=== PATIENT | male | born 1950 | race Caucasian/White ===

== ENCOUNTER 2017-10-03 09:50 | Emergency (ER) | payer MEDICARE, BC ==
--- NOTE | 2017-10-03 10:25 | ED ---
Skin Complaint - HPI Summary HPI Summary: 58-year-old male with no past medical history presents with itchy rash located on the anterior surfaces of the lower legs bilaterally starting approximate 4 days prior, gradually worsening, with a centripetal pattern, patient initially thought it was bedbugs but has progressed bilaterally. Also complains of generalized myalgias, subjective fever, and fatigue. Patient says rash is intermittently itchy. Denies any hematuria. No recent international travel. Located mainly on lower extremities, to a lesser degree in the forearms and back. Sparing of the face and torso. - History of Current Complaint Chief Complaint: EDRashSkinAbscess Stated Complaint: RASH Pain Intensity: 4 - Allergy/Home Medications Allergies/Adverse Reactions: Allergies Allergy/AdvReac Type Severity Reaction Status Date / Time No Known Allergies Allergy Verified 10/03/17 09:52 PMH/Surg Hx/FS Hx/Imm Hx Endocrine/Hematology History: Denies: Hx Diabetes, Hx Thyroid Disease Cardiovascular History: Denies: Hx Hypertension Respiratory History: Denies: Hx Asthma, Hx Chronic Obstructive Pulmonary Disease (COPD) GI History: Denies: Hx Ulcer History: Reports: Hx Kidney Stones - Cancer History Cancer Type, Location and Year: skin cancer and prostate cancer - Surgical History Surgery Procedure, Year, and Place: Radical prostatectomy Infectious Disease History: No Infectious Disease History: Denies: Hx Clostridium Difficile, Hx Hepatitis, Hx Human Immunodeficiency Virus (HIV), Hx of Known/Suspected MRSA, Hx Shingles, Hx Tuberculosis, Hx Known/ Suspected VRE, Hx Known/Suspected VRSA, History Other Infectious Disease, Traveled Outside the [place] in Last 30 Days - Family History Known Family History: Positive: None - Social History Alcohol Use: Occasionally Substance Use Type: Reports: None Smoking Status (MU): Light Every Day Tobacco Smoker Type: Cigarettes Have You Smoked in the Last Year: Yes Review of Systems Positive: Chills, Fatigue ENT: Negative Cardiovascular: Negative Respiratory: Negative Gastrointestinal: Negative Genitourinary: Negative Positive: Arthralgia Positive: Rash Neurological: Negative Psychological: Normal All Other Systems Reviewed And Are Negative: Yes Physical Exam Triage Information Reviewed: Yes Vital Signs On Initial Exam: Initial Vitals Temp Pulse Resp BP Pulse Ox 37.1 C 95 16 143/95 96 10/03/17 09:55 10/03/17 09:55 10/03/17 09:55 10/03/17 09:55 10/03/17 09:55 Vital Signs Reviewed: Yes Skin: Positive: Warm, Other - Erythematous papular rash in a follicular pattern with appearance of petechiae in certain areas, located in the lower extremities anteriorly in the lower leg and top of the foot, some areas exhibit blanching. Mild pink papules slightly raised on the posterior forearms bilaterally Eyes: Positive: Normal, EOMI, MERLE ENT: Positive: Normal ENT inspection Neck: Positive: Supple Respiratory/Lung Sounds: Positive: Clear to Auscultation, Breath Sounds Present Cardiovascular: Positive: Normal, RRR Abdomen Description: Positive: Nontender, No Organomegaly Bowel Sounds: Positive: Present Musculoskeletal: Positive: Other - Mild tenderness to bilateral calves Neurological: Positive: Normal, CN Intact II-III Psychiatric: Positive: Normal Diagnostics - Vital Signs Vital Signs Temp Pulse Resp BP Pulse Ox 10/03/17 09:55 37.1 C 95 16 143/95 96 - Laboratory Result Diagrams: 10/03/17 10:32 10/03/17 10:33 Lab Statement: Any lab studies that have been ordered have been reviewed, and results considered in the medical decision making process. Course/Dx - Course Assessment/Plan: Patient in no acute distress here in the emergency department. Labs show mild osteopenia without evidence of renal failure or anemia. injury distress. I instructed Mr. Burden to follow-up with a front desk agent and a wood borer, given my suspicion for early vasculitis with the appearance of the rash and other constitutional symptoms. Also prescribed initial course of Medrol Dosepak and doxycycline for possibility of tick borne illness given isolated thrombocytopenia and fever. Also instructed Mr. Burden to return to the emergency Department if he notices worsening of the rash accompanied by any other constitutional symptoms including additional fever, myalgias, nausea, vomiting, or abdominal pain. Mr. Burden is thankful for his care and agrees and understands discharge instructions. - Diagnoses Provider Diagnoses: Vasculitis, Rash and nonspecific skin eruption Discharge - Sign-Out/Discharge Documenting (check all that apply): Discharge/Admit/Transfer - Discharge Plan Condition: Stable Disposition: HOME Prescriptions: DOXYcycline CAP(*) [DOXYcycline 100MG CAP(*)] 100 mg PO BID #14 cap methylPREDNISolone [Medrol Dosepak 4 MG*] 4 mg PO .SEE TEENA INSTRUCTION #4 tab Patient Education Materials: [place] (ED), [place] Spotted Fever (ED) Referrals: Flavio Contreras MD [Primary Care Provider] - Andrey Woods MD [Medical Doctor] - Gardenia Woody [Medical Doctor] - Andrey Belcher JR, MD [Medical Doctor] - Radha Wheat MD [Medical Doctor] - Additional Instructions: PLEASE MAKE AN APPOINTMENT FIRST THING IN THE MORNING TO BE SEEN BY A ORACLE R12 DEVELOPER AND CONTINUOUS MINING MACHINE COAL MINER WITHIN 1 WEEK PLEASE RETURN TO THE EMERGENCY ROOM IF YOU HAVE ANY WORSENING OR CONCERNING SYMPTOMS PLEASE MAKE AN APPOINTMENT FIRST THING IN THE MORNING TO BE SEEN BY YOUR PRIMARY CARE DOCTOR WITHIN 1 WEEK - Billing Disposition and Condition Condition: STABLE Disposition: HOME
[2017-10-03 10:39] LABS: Hematocrit 40 % (42-52); Hemoglobin 13.5 g/dl (14.0-18.0); Mean Corpuscular HGB Conc 34 g/dl (31-36); Mean Corpuscular Hemoglobin 29 pg (27-31); Mean Corpuscular Volume 84 fL (80-94); Mean Platelet Volume 9.4 um3 (7.4-10.4); Platelet Count 103 10^3/ul (150-450); Red Blood Count 4.73 10^6/ul (4.0-5.4); Red Cell Distribution Width 15 % (10.5-15); White Blood Count 3.6 10^3/ul (3.5-10.8)
[2017-10-03 11:14] LABS: INR 0.94 (0.77-1.02)
[2017-10-03 11:15] LABS: ABS Basophils 0 10^3/ul (0-0.2); ABS Eosinophils 0.1 10^3/ul (0-0.6); ABS Lymphocytes 0.6 10^3/ul (1.0-4.8); ABS Monocytes 0.2 10^3/ul (0-0.8); ABS Neutrophils 2.7 10^3/ul (1.5-7.7); ABS Nucleated RBC 0 10^3/ul; Eosinophil % 1.5 % (0-6); Lymphocyte % 17.5 % (25-47); Nucleated Red Blood Cells % 0
[2017-10-03] MEDS ORDERED: predniSONE TAB* 20 MG PO ONE (11:28)
[2017-10-03] MEDS ORDERED: DOXYcycline CAP(*) 100 MG PO ONE (11:28)
[2017-10-03 12:18] VITALS: BP 133/59
[2017-10-03 13:39] LABS: RBC Parasite Smear No Parasites Seen (No Parasite)
== END 2017-10-03 12:17 | disposition home or self-care (01) ==
LOC: ED 09:50
DX: I77.6 Arteritis, unspecified (principal); R21 Rash and other nonspecific skin eruption; F17.210 Nicotine dependence, cigarettes, uncomplicated; Z85.46 Personal history of malignant neoplasm of prostate; Z85.828 Personal history of other malignant neoplasm of skin; D69.6 Thrombocytopenia, unspecified; R50.9 Fever, unspecified
CPT/HCPCS: 36415; 80053; 85025; 85610; 85730; 86618; 86666; 86753; 87015; 87207; 93005; 99282; A9270-GY; J7512

== ENCOUNTER 2019-03-09 20:20 | Emergency (ER) | payer MEDICARE, BC ==
--- OUTSIDE RECORDS SUMMARY | 2019-03-09 20:32 | XMS REPORT | Summary of Care ---
:1950 Author Organization [facility] Address [address] [place] [address] Care Team Providers Name Role Phone Flavio Contreras MD Primary Care Provider Reason for Referral Refer to Department Only (Routine) Status Reason Specialty Diagnoses / Referred By Referred To Procedures Contact Contact Authorized Orthopedics Diagnoses Bilateral hand pain Corey Muse MD [address] [place] [address] Reason for Visit Reason Comments New Patient Right tibia/espinal pain. Patient was climbing and fell and hit his espinal on a cabinet. Patient has been in severe espinal pain ever since. DOI: 03-01-19 Encounter Details Date Type Department Care Team Description 03/02/2019 Office Visit [facility] - Corey Muse MD Bilateral hand pain (Primary Dx); [place] [email or web address] Leg pain, anterior, right [address] [place] [place] [address] [place] [address] [phone] Allergies No Known Allergiesdocumented as of this encounter (statuses as of 03/02/2019) Medications Medication Sig Dispensed Refills Start Date End Date Status Tadalafil (CIALIS) 20 MG Take 1 Tab by 18 Tab 2 04/15/2010 Active Oral Tab mouth NEEDED ( NEEDED). ibuprofen (MOTRIN) 200 MG Take 200 mg by 0 Active Oral Tab mouth EVERY SIX HOURS NEEDED. DiphenhydrAMINE HCl Take by mouth. 0 Active (BENADRYL ALLERGY PO) ValACYclovir HCl (VALTREX Take by mouth. 0 Active PO) documented as of this encounter (statuses as of 03/02/2019) Active Problems Problem Noted Date Left foot pain 02/24/2017 Right hip pain 02/24/2017 Knee pain, right 07/14/2014 Encounter for allergy testing Overview: 12.30.1989 Replaced inactive diagnosis ENVIRONMENTAL ALLERGIES Extrinsic asthma, unspecified Need for desensitization to allergens Overview: 11.10.1988 UNTIL 10.27.1989 LAST INJ..15 OF 1:100. documented as of this encounter (statuses as of 03/02/2019) Social History Tobacco Use Types Packs/Day Years Used Date Former Smoker 0 Smokeless Tobacco: Never Used Sex Assigned at Date Recorded Not on file Job Start Date Occupation Industry Not on file Not on file Not on file Travel History Travel Start Travel End No recent travel history available. documented as of this encounter Last Filed Vital Signs Vital Sign Reading Time Taken Comments Blood Pressure 133/81 03/02/2019 9:58 AM EDT Pulse 70 03/02/2019 9:58 AM EDT Temperature - - Respiratory Rate - - Oxygen Saturation - - Inhaled Oxygen Concentration - - Weight 76.2 kg (168 lb) 03/02/2019 9:58 AM EDT Height 170.2 cm (5' 7") 03/02/2019 9:58 AM EDT Body Mass Index 26.31 03/02/2019 9:58 AM EDT documented in this encounter Progress Notes Corey Muse MD - 03/02/2019 9:45 AM EDT Name: Sharath Burden : 1950 Date of Service: 03/02/2019 Chief Complaint Patient presents with New Patient Right tibia/espinal pain. Patient was climbing and fell and hit his espinal on a cabinet. Patient has been in severe espinal pain ever since. DOI: 03-01-19 68-year-old active man presents with 1 day history of right anterior tibial pain and swelling. Patient pain tibia yesterday when he was on a stepladder and fell. Last night there was significant amount of swelling. He iced it overnight and now the swelling is down considerably. No paresthesias. No other symptoms. Physical exam shows a healthy-appearing man in no acute distress. Alert and oriented. Observation of the right leg shows a fairly small hematoma on the anterior aspect of the right leg approximately between the proximal two thirds and distal one third. There is ecchymosis present. There is no cellulitis. There is tenderness in the soft tissue over the hematoma but no bony tenderness. Neurovascular status right lower extremity intact. Impression: Contusion right distal leg. Plan: Symptomatic treatment. Return if needed. No x-ray indicated at this time. ICD-9-CM ICD-10-CM 1. Bilateral hand pain 729.5 M79.641 REFER TO ORTHOPEDICS M79.642 2. Leg pain, anterior, right 729.5 M79.604 Author: Corey Muse MD 03/02/2019 10:27 This record contains sections created with voice recognition software. It has been electronically signed. A reasonable attempt at proofreading has been made. Please call with any questions or corrections. documented in this encounter Plan of Treatment Name Type Priority Associated Diagnoses Order Schedule REFER TO ORTHOPEDICS Referral Routine Bilateral hand pain Expected: 2018, Expires: 03/02/2020 Health Maintenance Due Date Last Done Comments MEDICARE ANNUAL WELLNESS VISIT 1950 DEPRESSION SCREENING 1960 HIV SCREENING 10/15/1963 DIABETES SCREENING 1966 LIPID DISORDER SCREENING 1966 HEPATITIS C SCREENING 1988 COLONOSCOPY SCREENING 1998 ZOSTER IMMUNIZATION SERIES (1 of 2) 1998 AAA SCREENING/SURVEILLANCE 2013 FALL RISK ASSESSMENT 2013 PNEUMOCOCCAL 65+YRS (1 of 2 - 2013 PCV13) INFLUENZA VACCINE (#1) 2019 HPV IMMUNIZATION SERIES Aged Out No longer eligible based on patient's age to complete this topic MENINGOCOCCAL VACCINE IMM Aged Out No longer eligible based on patient's age to complete this topic documented as of this encounter Results Not on filedocumented in this encounter Visit Diagnoses Diagnosis Bilateral hand pain - Primary Pain in limb Leg pain, anterior, right documented in this encounter Insurance Payer Benefit Plan / Subscriber ID Effective Dates Phone Address Type Group MEDICARE MEDICARE PART A & xxxxxxxxxxx 2013-Present Medicare B [employer] xxxxxxxxxxxx 2015-Present [employer] Guarantor Name Account Type Relation to Date of Phone Billing Patient Address Kenn Burden Personal/Family 1950 [address] (Home) [place], [place] [phone] [id number] (Work) documented as of this encounter
[2019-03-09] MEDS ORDERED: NS 0.9% 1000 ML** 1,000 ML IV ONE (20:39)
[2019-03-09] MEDS ORDERED: Morphine 4 MG/ML VIAL (1 ml) 4 MG/ML VIAL IV ONE (20:39)
[2019-03-09] MEDS ORDERED: Ondansetron INJ* 2 MG/ML VIAL IV ONE (20:46)
--- NOTE | 2019-03-09 20:57 | ED ---
GI/ HPI - HPI Summary HPI Summary: 68-year-old male presents with left flank pain today. He's had nausea and vomiting. Denies any fevers. States started with pain in his penis and then moved up to his back. He states he's had this pain before with kidney stones. Has a history of radical prostatectomy done by Dr. Heller. Denies any chest pain or shortness of breath. Took oxycodone prior to arrival. States pain is still severe. No dysuria. No diarrhea no constipation. - History of Current Complaint Chief Complaint: EDFlankPain Time Seen by Provider: 03/09/19 20:39 Stated Complaint: POSS KIDNEY STONES PER PT Pain Intensity: 10 - Allergy/Home Medications Allergies/Adverse Reactions: Allergies Allergy/AdvReac Type Severity Reaction Status Date / Time No Known Allergies Allergy Verified 03/09/19 20:25 Home Medications: Home Medications Rosuvastatin (NF) [Crestor (NF)] 5 mg PO .TWICE A WEEK 03/09/19 [History Confirmed 03/09/19] Tadalafil [Cialis] 20 mg PO DAILY PRN 03/09/19 [History Confirmed 03/09/19] PMH/Surg Hx/FS Hx/Imm Hx Endocrine/Hematology History: Denies: Hx Diabetes, Hx Thyroid Disease Cardiovascular History: Denies: Hx Hypertension Respiratory History: Denies: Hx Asthma, Hx Chronic Obstructive Pulmonary Disease (COPD) GI History: Denies: Hx Ulcer History: Reports: Hx Kidney Stones - Cancer History Cancer Type, Location and Year: skin cancer and prostate cancer - Surgical History Surgery Procedure, Year, and Place: Radical prostatectomy Infectious Disease History: No Infectious Disease History: Denies: Hx Clostridium Difficile, Hx Hepatitis, Hx Human Immunodeficiency Virus (HIV), Hx of Known/Suspected MRSA, Hx Shingles, Hx Tuberculosis, Hx Known/ Suspected VRE, Hx Known/Suspected VRSA, History Other Infectious Disease, Traveled Outside the [place] in Last 30 Days - Family History Known Family History: Positive: None Family History: lung cancer, kidney disease, prostate cancer - Social History Alcohol Use: Occasionally Substance Use Type: Reports: None Smoking Status (MU): Former Smoker Type: Cigarettes Have You Smoked in the Last Year: Yes Review of Systems Negative: Fever Negative: Chest Pain Negative: Shortness Of Breath Positive: Vomiting, Nausea. Negative: Abdominal Pain, Diarrhea Positive: flank pain All Other Systems Reviewed And Are Negative: Yes Physical Exam Triage Information Reviewed: Yes Vital Signs On Initial Exam: Initial Vitals Temp Pulse Resp BP Pulse Ox 97.6 F 61 20 173/118 100 03/09/19 20:21 03/09/19 20:21 03/09/19 20:21 03/09/19 20:21 03/09/19 20:21 Vital Signs Reviewed: Yes Appearance: Positive: Well-Appearing Skin: Positive: Warm, Dry Head/Face: Positive: Normal Head/Face Inspection Eyes: Positive: Normal, Conjunctiva Clear ENT: Positive: Pharynx normal Respiratory/Lung Sounds: Positive: Clear to Auscultation, Breath Sounds Present Cardiovascular: Positive: Normal, RRR Abdomen Description: Positive: Nontender, Soft, CVA Tenderness (L) Bowel Sounds: Positive: Present Musculoskeletal: Positive: Normal Neurological: Positive: Normal Psychiatric: Positive: Normal Procedures - Sedation Patient Received Moderate/Deep Sedation with Procedure: No Diagnostics - Vital Signs Vital Signs Temp Pulse Resp BP Pulse Ox 03/09/19 20:21 97.6 F 61 20 173/118 100 - Laboratory Result Diagrams: 03/09/19 20:59 03/09/19 20:59 Lab Statement: Any lab studies that have been ordered have been reviewed, and results considered in the medical decision making process. - CT abd CT Interpretation Completed By: Radiologist Summary of CT Findings: IMPRESSION: 1. 3 mm calcified stone located in the area of the left ureteral vesicular junction. This causes moderate left-sided hydronephrosis with perinephric stranding. 2. Prior prostatectomy. No pelvic, periaortic or pericaval adenopathy. Re-Evaluation - Re-Evaluation First Eval Comment: pain still present Second Eval Change: Improved Comment: pain improved GIGU Course/Dx - Course Course Of Treatment: 68-year-old male presents with left flank pain today. He' s had nausea and vomiting. Denies any fevers. States started with pain in his penis and then moved up to his back. He states he's had this pain before with kidney stones. Has a history of radical prostatectomy done by Dr. Heller. Denies any chest pain or shortness of breath. Took oxycodone prior to arrival. States pain is still severe. No dysuria. No diarrhea no constipation. On exam tenderness over left flank. urine no infection. wbc normal. CT shows 3mm stone. will give pain medication and flomax and have follow up with urology. patient understand and agrees with plan. - Diagnoses Differential Diagnoses - Male: Pyelonephritis, Urethritis, Urinary Tract Infection Provider Diagnoses: Ureteral stone Discharge ED - Sign-Out/Discharge Documenting (check all that apply): Patient Departure - Discharge Plan Condition: Good Disposition: HOME Prescriptions: Ondansetron TAB* [Zofran 4 MG Tab*] 4 mg PO Q6H PRN #12 tab PRN Reason: Nausea oxyCODONE/Acetamin 5/325 MG* [Percocet 5/325 TAB*] 1 - 2 tab PO Q6H PRN #16 tab MDD 8 PRN Reason: Pain - Moderate Tamsulosin CAP* [Flomax CAP*] 0.4 mg PO DAILY #6 cap Patient Education Materials: Ureteral Stones (ED) Referrals: Flavio Contreras MD [Primary Care Provider] - Jacques Heller MD [Medical Doctor] - Additional Instructions: Take ibuprofen every 6 hours and 1-2 tablets percocet as needed every 6 hours Take Zofran every 6 hours for nausea as needed Take Flomax daily starting tomorrow, first dose given in ED until stone expelled , make sure stand up slowly Follow up with urology, call office tomorrow for appointment Return to ED develop any new or worsening symptoms - Billing Disposition and Condition Condition: GOOD Disposition: Home
[2019-03-09 21:08] LABS: ABS Eosinophils 0.1 10^3/ul (0-0.6); ABS Lymphocytes 2.2 10^3/ul (1.0-4.8); ABS Monocytes 0.6 10^3/ul (0-0.8); ABS Neutrophils 3.9 10^3/ul (1.5-7.7); Eosinophil % 1.5 %; Hematocrit 41 % (42-52); Hemoglobin 14.1 g/dL (14.0-18.0); Lymphocyte % 31.9 %; Mean Corpuscular HGB Conc 34 g/dL (31-36); Mean Corpuscular Hemoglobin 29 pg (27-31); Mean Corpuscular Volume 85 fL (80-94); Mean Platelet Volume 10.4 fL (7.4-10.4); Nucleated Red Blood Cells % 0.1; Platelet Count 133 10^3/uL (150-450); Red Blood Count 4.89 10^6 /uL (4.18-5.48); Red Cell Distribution Width 14 % (10-15); White Blood Count 6.8 10^3/uL (3.5-10.8)
[2019-03-09] MEDS ORDERED: Ketorolac INJ* 30 MG/ML 1 ML VIAL IV PUSH ONE (21:21)
[2019-03-09 21:23] LABS: Albumin 3.8 g/dL (3.2-5.2); Albumin/Globulin Ratio 1.5 (1-3); BUN/Creatinine Ratio 28.4 (8-20); C Reactive Protein 1.04 mg/L (<8.01); Calcium 8.8 mg/dL (8.6-10.3); EGFR African American 103.6 (>60); EGFR Non-African American 85.6 (>60); Globulin 2.5 g/dL (2-4); Potassium 3.4 mmol/L (3.5-5.0); Total Bilirubin 0.6 mg/dL (0.2-1.0); Total Protein 6.3 g/dL (6.4-8.9)
[2019-03-09 22:30] LABS: Urine Appearance Clear; Urine Bacteria Absent (Absent); Urine Bilirubin Negative (Negative); Urine Blood 1+ (Negative); Urine Color Straw; Urine Glucose Negative (Negative); Urine Ketones Trace (Negative); Urine Nitrite Negative (Negative); Urine Protein Negative (Negative); Urine Red Blood Cell 1+(3-5/hpf) (Absent); Urine Specific Gravity 1.012 (1.010-1.030); Urine Urobilinogen Negative (Negative); Urine White Blood Cell Absent (Absent)
[2019-03-09] MEDS ORDERED: Tamsulosin CAP* 0.4 MG PO ONE (22:46)
[2019-03-09] MEDS ORDERED: O ndansetron ODT 4MG 5TAB PRPK 4 MG PAK PO ONE (22:47)
[2019-03-09 23:24] VITALS: BP 163/105
== END 2019-03-09 23:25 | disposition home or self-care (01) ==
LOC: ED 20:20
DX: N13.2 Hydronephrosis with renal and ureteral calculous obstruction (principal); Z90.79 Acquired absence of other genital organ(s); Z85.46 Personal history of malignant neoplasm of prostate; Z85.828 Personal history of other malignant neoplasm of skin; Z87.891 Personal history of nicotine dependence; Z79.899 Other long term (current) drug therapy
CPT/HCPCS: 36415; 74176; 80053; 81003; 81015; 83605; 83690; 85025; 86140; 96361; 96374; 96375; 99283; A9270-GY; J1885; J2270; J2405

== ENCOUNTER 2023-07-25 16:10 | Observation (INO) ==
[2023-07-25 16:40] LABS: ABS Eosinophils 0.1 10^3/uL (0.0-0.5); ABS Lymphocytes 1.8 10^3/uL (1.0-4.8); ABS Monocytes 0.7 10^3/uL (0.0-1.1); ABS Neutrophils 6.1 10^3/uL (1.5-7.6); ABS Nucleated RBC 0.01 10^3/ul; Eosinophil % 1.6 %; Hematocrit 43.7 % (38-53); Hemoglobin 15.1 g/dL (13.2-16.3); Lymphocyte % 20.5 %; Mean Corpuscular Hemoglobin 29.6 pg (27-33); Mean Corpuscular Hgb Conc 34.7 g/dL (31-36); Mean Corpuscular Volume 85.3 fL (80-97); Mean Platelet Volume 10.8 fL (7.5-11.2); Nucleated Red Blood Cells % 0.1 %/100WBC (0.0-0.8); Platelet Count 145 10^3/uL (150-450); Red Blood Count 5.12 10^6/uL (4.06-5.63); Red Cell Distribution Width 15.4 % (12-17); White Blood Count 8.7 10^3/uL (3.6-10.2)
[2023-07-25 16:49] LABS: INR 1.05 (0.83-1.13)
[2023-07-25 17:15] LABS: Albumin 4.6 g/dL (3.2-5.2); Calcium 9.4 mg/dL (8.6-10.3); Creatinine, Serum 1.22 mg/dL (0.67-1.17); Globulin 2.3 g/dL (2-4); Potassium 4.1 mmol/L (3.5-5.0); Total Bilirubin 0.6 mg/dL (0.2-1.0); Total Protein 6.9 g/dL (6.4-8.9); eGFR CKD-EPI 62.2 (>60)
[2023-07-25 18:21] LABS: High Sensitivity Troponin 1 Hr 3 pg/mL (<20)
[2023-07-25] MEDS: hydrALAZINE 20 mg/ml 1 ML Vial IV IV SLOW PU ONE (19:46)
[2023-07-26 06:40] LABS: Hematocrit 42.8 % (38-53); Hemoglobin 14.6 g/dL (13.2-16.3); Mean Corpuscular Hgb Conc 34.1 g/dL (31-36); Mean Corpuscular Volume 85.1 fL (80-97); Mean Platelet Volume 10.8 fL (7.5-11.2); Platelet Count 142 10^3/uL (150-450); Red Blood Count 5.03 10^6/uL (4.06-5.63); Red Cell Distribution Width 15.4 % (12-17); White Blood Count 8.1 10^3/uL (3.6-10.2)
[2023-07-26 07:24] LABS: Calcium 8.8 mg/dL (8.6-10.3); Creatinine, Serum 0.94 mg/dL (0.67-1.17); HDL Cholesterol 36.8 mg/dL; Magnesium 2.1 mg/dL (1.9-2.7); eGFR CKD-EPI 85.1 (>60)
[2023-07-26] MEDS: Enoxaparin 40 MG/0.4 ML SYR SUBCUT SCH (08:42)
[2023-07-27 05:26] VITALS: BP 137/88
[2023-07-27 06:38] LABS: ABS Eosinophils 0.1 10^3/uL (0.0-0.5); ABS Lymphocytes 1.7 10^3/uL (1.0-4.8); ABS Monocytes 0.7 10^3/uL (0.0-1.1); ABS Neutrophils 6.1 10^3/uL (1.5-7.6); ABS Nucleated RBC 0.01 10^3/ul; Eosinophil % 1.7 %; Hematocrit 42.8 % (38-53); Hemoglobin 14.7 g/dL (13.2-16.3); Lymphocyte % 19.6 %; Mean Corpuscular Hemoglobin 29.2 pg (27-33); Mean Corpuscular Hgb Conc 34.3 g/dL (31-36); Nucleated Red Blood Cells % 0.1 %/100WBC (0.0-0.8); Platelet Count 149 10^3/uL (150-450); Red Blood Count 5.03 10^6/uL (4.06-5.63); White Blood Count 8.7 10^3/uL (3.6-10.2)
[2023-07-27 07:02] LABS: Calcium 9.1 mg/dL (8.6-10.3); Creatinine, Serum 0.93 mg/dL (0.67-1.17); Magnesium 2.1 mg/dL (1.9-2.7); Potassium 3.9 mmol/L (3.5-5.0); eGFR CKD-EPI 86.2 (>60)
== END 2023-07-27 14:00 | disposition home or self-care (01) ==
LOC: ED 16:10 → EDHOLD 16:10 → SUATTDRO 20:43 → MEDTELE 07-26 14:48
PROVIDERS: ADMIT Hospitalist; ATTEND Internal Medicine